=== PATIENT | female | born 1965 | race Hispanic/Latino ===

== ENCOUNTER 2021-06-16 07:56 | Outpatient (CLI) | payer BC | END 2021-06-16 07:57 | disposition home or self-care (01) | LOC: CSHULT 07:56 | PROVIDERS: ATTEND Family Medicine | DX: R10.11 Right upper quadrant pain (principal); R10.31 Right lower quadrant pain; K74.60 Unspecified cirrhosis of liver; R16.1 Splenomegaly, not elsewhere classified; Z90.49 Acquired absence of other specified parts of digestive tract | CPT/HCPCS: 76700; 76856 ==

== ENCOUNTER 2021-08-15 16:02 | Outpatient (CLI) | payer BC | END 2021-08-15 16:03 | disposition home or self-care (01) | LOC: CSHMRI 16:02 | PROVIDERS: ATTEND Orthopaedic Surgery | DX: S46.012D Strain of muscle(s) and tendon(s) of the rotator cuff of left shoulder, subsequent encounter (principal); S43.432A Superior glenoid labrum lesion of left shoulder, initial encounter; M19.012 Primary osteoarthritis, left shoulder; M65.812 Other synovitis and tenosynovitis, left shoulder ==

== ENCOUNTER 2022-05-11 08:43 | Outpatient (CLI) | payer BC ==
[2022-05-11] MEDS ORDERED: Iopamidol 370 76% 100 ML VIAL ONE (13:50)
== END 2022-05-11 08:44 | disposition home or self-care (01) ==
LOC: CSHCT 08:43
PROVIDERS: ATTEND Physician Assistant Medical
DX: K74.60 Unspecified cirrhosis of liver (principal); K25.9 Gastric ulcer, unspecified as acute or chronic, without hemorrhage or perforation; K76.0 Fatty (change of) liver, not elsewhere classified; Z90.49 Acquired absence of other specified parts of digestive tract
CPT/HCPCS: 74170; Q9967